=== PATIENT | male | born 1990 | race Caucasian/White ===

== ENCOUNTER 2022-11-03 21:52 | Emergency (ER) | payer BC, OTHER ==
--- OUTSIDE RECORDS SUMMARY | 2022-11-03 21:56 | XMS REPORT | Continuity of Care Document ---
:1990 Author Organization [facility] t Address [address] [place] [address] Care Team Providers Name Role Phone DANIELLE Attending Clinician Unavailable Arnaldo Travis Attending Clinician [phone] GUCCI GARCIA Attending Clinician Unavailable BA, DR BRITTON Attending Clinician Unavailable DANIELLE Admitting Clinician Unavailable DR REBA BELTRAN Admitting Clinician Unavailable Payers Payer Name Policy Type Policy Number Effective Date Expiration Date Marilee DUNN [facility] [id number] 2018 00:00:00 Problems This patient has no known problems. Allergies, Adverse Reactions, Alerts Allergy Allergy Status Severity Reaction(s) Onset Inactive Treating Comm ents Source Name Type Date Date Clinician NO KNOWN Drug Active [facility] ALLERGIE Class ity of S [facility] Social History Smoking Status Start Date Stop Date Source Current Every Day Smoker [facility] Medications Ordered Filled Start Stop Current Ordering Indication Dosage Frequency Signature Comments Components Source Medication Medication Date Date Medication? Clinician (SIG) Name Name Paxlovid Paxlovid No 3 BID Paxlovid Swe naz 300 mg (150 300 mg (150 300 mg Communi mg x 2)-100 mg x 2)-100 (150 mg x ty mg tablets mg tablets 2)-100 mg Hospita in a dose in a dose tablets in l pack (EUA) pack (EUA) a dose C linics Take 3 Take 3 pack (EUA) tablets tablets Take 3 twice a day twice a day tablets by oral by oral twice a route for 5 route for 5 day by days. days. oral route for 5 days. prednisone prednisone No prednisone [place] 20 mg 20 mg 20 mg Communi tablet Take tablet Take tablet ty 3 tablets 3 tablets Take 3 Hos meche by mouth by mouth tablets by l for the 1st for the 1st mouth for Clinics day, 2 day, 2 the 1st tablets the tablets the day, 2 2nd day and 2nd day and tablets 1 tablet 1 tablet the 2nd daily until daily until day and 1 finished finished tablet daily until finished Zithromax Zithromax No Zithromax [place] Z-Norman 250 Z-Norman 250 Z-Norman 250 Communi mg tablet mg tablet mg tablet ty TAKE 2 TAKE 2 TAKE 2 Hospita TABLETS TABLETS TABLETS l (500 MG) BY (500 MG) BY (500 MG) Clinics ORAL ROUTE ORAL ROUTE BY ORAL ONCE DAILY ONCE DAILY ROUTE ONCE FOR 1 DAY FOR 1 DAY DAILY FOR THEN 1 THEN 1 1 DAY THEN TABLET (250 TABLET (250 1 TABLET MG) BY ORAL MG) BY ORAL (250 MG) ROUTE ONCE ROUTE ONCE BY ORAL DAILY FOR 4 DAILY FOR 4 ROUTE ONCE DAYS DAYS DAILY FOR 4 DAYS Vital Signs Vital Name Observation Time Observation Value Comments Source Height 2022-04-15 00:00:00 66 [in_i] [facility] s BMI (Body Mass 2022-04-15 00:00:00 33.1 kg/m2 [facility] s Body Weight 2022-04-15 00:00:00 3280 [oz_av] [facility] s Procedures This patient has no known procedures. Plan of Care Planned Activity Planned Date Details Comments Source Diagnostic Test 2022-04-15 rapid SARS CoV 2 Ag, [facility] Pending 00:00:00 QL [place], respiratory Hospital Clinics specimen [code = rapid SARS CoV 2 Ag, QL [place], respiratory specimen] Encounters Start End Encounter Admission Attending Care Care Encounter Source Date/Time Date/Time Type Type Clinicians Facility Department ID 2021-10-17 Outpatient [facility] [id number] Common 12:30:07 [id number] [facility] 2022-04-15 2022-04-15 Outpatient DANIELLE [facility] [id number] [place] 02:54:00 02:54:00 [id number] [facility] 2022-04-15 2022-04-15 [facility] [id number] 00:00:00 00:00:00 Arnaldo [id number] Jeffrey [id number] 2022-04-15 2022-04-15 [facility] [place] 00:00:00 00:00:00 [facility] [address] [facility] [address] H[facility] Clinic s [place], [place] CLINIC, [id number] KORI , Ph. 2019-12-16 2019-12-16 Outpatient Debra GARCIA [facility] [id number] [facility] 15:30:00 15:30:00 [facility] 2019-11-18 2019-11-18 Outpatient Debra GARCIA [facility] [id number] [facility] 14:45:00 14:45:00 [facility] Results Test Description Test Time Test Comments Results Result Comments Source SARS-CoV-2 (COVID-19) Ag [Presence] in Respiratory spe cimen by 2022-04-15 13:53:00 Rapid immunoassay Test Item Value Reference Range Interpretation Comme nts SARS CoV 2 (test code = SARS CoV 2) positive [facility] [id number] 11:32:00 Test Item Value Reference Range Interpretation Comments Culture Observations NO BETA HEMOLYTIC (test code = COB1) STREPTOCOCCUS ISOLATED Direct Exam (test code NEGATIVE FOR STREP A = DE3) ANTIGEN COMPREHENSIVE METABOLIC PAZ *WW*2017-04-22 23:03:00 Test Item Value Reference Range Interpretation Comments GLUCOSE (test code = 06D) 95 mg/dL 75-100 SODIUM (test code = 01A) 138 mmol/L 136-145 POTASSIUM (test code = 01B) 3.2 mmol/L 3.6-5.1 L CHLORIDE (test code = 04A) 103 mmol/L 98-107 CO2 (test code = 02A) 23 mmol/L 22-32 ANION GAP (test code = ANG) 15.2 mmol/L BUN (test code = 05D) 13 mg/dL 7-18 CREATININE (test code = 03E) 1.1 mg/dL 0.7-1.3 BUN/CREA (test code = BCR) 12 12-20 CALCIUM (test code = 09D) 8.4 mg/dL 8.3-9.5 BILI TOTAL (test code = 11A) 0.8 mg/dL 0.2-1.0 PROTEIN (test code = 07D) 7.2 g/dL 6.4-8.2 ALBUMIN (test code = 08D) 3.9 g/dL 3.5-4.8 GLOBULIN (test code = GLB) 3.3 g/dL 1.5-3.8 ALB/GLOB (test code = AGRR) 1.2 1.0-2.6 ALK PHOS (test code = 35A) 67 IU/L 42-121 AST (test code = 30A) 21 IU/L <=42 ALT (test code = 31A) 24 IU/L <=78 CBC (INCLUDES AUTOMATED DIFFERENTIAL)*[id number] 22:47:00 Test Item Value Reference Range Interpretation Comments WBC (test code = WBC) 7.4 10\S\3/uL 4.5-11.0 RBC (test code = RBC) 4.54 10\S\6/uL 4.30-5.70 HGB (test code = HBG) 13.0 g/dL 14.0-18.0 L HCT (test code = HCT) 36.6 % 35.0-46.0 MCV (test code = MCV) 80.6 fL 80.0-94.0 MCH (test code = MCH) 28.6 pg 27.0-31.0 MCHC (test code = MCHC) 35.5 g/dL 32.0-36.0 RDW (test code = RDW) 11.8 % 11.5-14.5 PLT (test code = PLT) 180 10\S\3/uL 130-400 MPV (test code = MPV) 12.6 fL 9.4-12.4 H NEUTROP # (test code = NE#) 4.6 10\S\3/uL 2.0-8.0 LYMPH # (test code = LY#) 1.8 10\S\3/uL 1.2-4.0 MONOCYTE # (test code = MO#) 0.9 10\S\3/uL 0.0-1.1 EOSINOPH # (test code = EO#) 0.1 10\S\3/uL 0.0-0.7 BASOPHIL # (test code = BA#) 0.1 10\S\3/uL 0.0-0.3 IG # (test code = IG#) 0.02 10\S\3/uL 0.00-0.06 NRBC # (test code = NRBC#) 0.00 10\S\3/uL 0.00-0.01 NEUTROPH % (test code = NE%) 61.7 % 35.0-73.0 LYMPH % (test code = LY%) 24.4 % 20.0-55.0 MONO % (test code = MO%) 11.8 % 2.5-10.0 H EOSINOPH % (test code = EO%) 1.1 % 0.0-5.0 BASOPHIL % (test code = BA%) 0.7 % 0.0-2.0 IG % (test code = IG%) 0.3 % 0.0-0.8 NRBC% (test code = NRBC%) 0.0 % 0.0-0.2 MANDIFF (test code = WMDIFF) NO NO RBC MORPH (test code = NORMAL WRBCMOR) DIRECT INFLUENZA A AND B [id number] 21:38:00 Test Item Value Reference Range Interpretation Comments Direct Exam (test PRESUMPTIVE NEGATIVE FOR code = DE3) THE PRESENCE OF INFLUENZA ANTIGEN
[2022-11-03] MEDS ORDERED: NA CHLORIDE 0.9% 1,000 ML ONE (22:24)
[2022-11-03] MEDS ORDERED: MORPHINE 4 MG/ML SYR ONE (22:24)
[2022-11-03] MEDS ORDERED: KETOROLAC 30 MG/ML INJ ONE (22:24)
[2022-11-03 23:00] LABS: Absolute Lymphocytes (CBC) 1.9 K/uL (0.7-4.9); Hematocrit 38.9 % (39.6-49.0); MCV 83.6 fL (80-100); MPV 11.5 fL (7.6-11.3); RBC Red Blood Cell Count 4.65 M/uL (4.33-5.43)
[2022-11-03 23:10] LABS: Potassium 3.9 mmol/L (3.5-5.1)
[2022-11-03 23:37] LABS: Urine Bacteria None Seen /HPF (<20); Urine RBC <5 /HPF (None Seen)
[2022-11-03 23:39] LABS: Urine Blood Negative (Negative); Urine Glucose Negative (Negative); Urine Protein 1+ (Negative); Urine pH 7.5 (5.0-7.0)
--- NOTE | 2022-11-04 00:20 | ER ---
Nurse's Notes [facility] Name: Krunal Reyna Age: 32 yrs Sex: Male : 1990 Arrival Date: 11/03/2022 Time: 21:56 Bed 19 Private MD: Diagnosis: Right flank pain;Ureterolithiasis;Acute Kidney Injury Presentation: 11/03 22:09 Chief complaint: Patient states: C/o intermittent right flank pain since Friday 06/01. ll3 Coronavirus screen: Vaccine status: Patient reports receiving the 2nd dose of the covid vaccine. At this time, the client does not indicate any symptoms associated with coronavirus-19. Ebola Screen: No symptoms or risks identified at this time. Initial Sepsis Screen: Does the patient meet any 2 criteria? No. Patient's initial sepsis screen is negative. Does the patient have a suspected source of infection? No. Patient's initial sepsis screen is negative. Risk Assessment: Do you want to hurt yourself or someone else? Patient reports no desire to harm self or others. Onset of symptoms was November 01, 2022. 22:09 Method Of Arrival: Ambulatory ll3 22:09 Acuity: LE 3 ll3 22:09 Care prior to arrival: Medication(s) given: Motrin, at 9 PM. ll3 Triage Assessment: 22:11 General: Appears uncomfortable, Behavior is calm, cooperative. Pain: Complains of pain ll3 in anterior aspect of right lateral abdomen Pain radiates to right femoral area and right inguinal area Pain currently is 9 out of 10 on a pain scale. Pain began Friday. GI: Abdomen is round non-distended, Reports nausea, Right flank pain. Derm: Skin is pink, warm \T\ dry. Historical: - Allergies: 22:11 No Known Allergies; ll3 - Home Meds: 22:11 Flomax 0.4 mg Oral cap [Active]; ll3 - PMHx: 22:11 Hypercholesterolemia; ll3 - PSHx: 22:11 None; ll3 - Immunization history:: Client reports receiving the 2nd dose of the Covid vaccine. - Social history:: Smoking status: Patient denies any tobacco usage or history of. Screenin:20 Abuse screen: Denies threats or abuse. Denies injuries from another. Nutritional ha1 screening: No deficits noted. Tuberculosis screening: No symptoms or risk factors identified. 11/04 00:35 [facility] ED Fall Risk Assessment (Adult) History of falling in the last 3 months, ll3 including since admission No falls in past 3 months (0 pts) Confusion or Disorientation No (0 pts) Intoxicated or Sedated No (0 pts) Impaired Gait No (0 pts) Mobility Assist Device Used No (0 pt) Altered Elimination No (0 pt) Score/Fall Risk Level 0 - 2 = Low Risk Oriented to surroundings, Maintained a safe environment, Educated pt \T\ family on fall prevention, incl call for assistance when getting out of bed. Assessment: 11/03 22:00 General: Appears uncomfortable, Behavior is calm, cooperative. Pain: Complains of pain ha1 in right lower back Pain radiates to right lower quadrant Pain currently is 9 out of 10 on a pain scale. Quality of pain is described as throbbing, Pain began suddenly. Neuro: Level of Consciousness is awake, alert, obeys commands, Oriented to person, place, time, situation. Cardiovascular: Heart tones S1 S2 present Capillary refill < 3 seconds Patient's skin is warm and dry. Respiratory: Airway is patent Respiratory effort is even, unlabored, Respiratory pattern is regular, symmetrical. GI: Abdomen is flat, non-distended, Bowel sounds present X 4 quads. Abd is soft and non tender X 4 quads. : No signs and/or symptoms were reported regarding the genitourinary system. EENT: No deficits noted. No signs and/or symptoms were reported regarding the EENT system. Derm: Skin is pink, warm \T\ dry. Musculoskeletal: Circulation, motion, and sensation intact. Range of motion: intact in all extremities, Reports pain in right lower back and pelvis area Pain is 9 out of 10 on a pain scale. 23:00 Reassessment: Patient and/or family updated on plan of care and expected duration. Pain ha1 level reassessed. Patient is alert, oriented x 3, equal unlabored respirations, skin warm/dry/pink. pain 3/10 Patient denies pain at this time. Patient states feeling better. Patient states symptoms have improved. 11/04 00:00 Reassessment: Patient and/or family updated on plan of care and expected duration. Pain ha1 level reassessed. Patient is alert, oriented x 3, equal unlabored respirations, skin warm/dry/pink. Patient states feeling better. Patient states symptoms have improved. Vital Signs: 11/03 22:00 BP 131 / 91; Pulse 66; Resp 18 S; Pulse Ox 99% on R/A; ha1 22:09 BP 131 / 91; Pulse 66; Resp 18; Temp 98.5(O); Pulse Ox 99% on R/A; Weight 92.99 kg (R); ll3 Height 5 ft. 6 in. (167.64 cm) (R); Pain 9/10; 23:00 BP 133 / 73; Pulse 66; Resp 15 S; Pulse Ox 99% on R/A; ha1 11/04 00:00 BP 133 / 82; Pulse 66; Resp 16 S; Pulse Ox 99% on R/A; ha1 11/03 22:09 Body Mass Index 33.09 (92.99 kg, 167.64 cm) ll3 ED Course: 11/03 21:56 Patient arrived in ED. ja2 22:00 Patient has correct armband on for positive identification. Placed in gown. Bed in low ha1 position. Call light in reach. Side rails up X 1. 22:01 Aldo Aguayo DO is Attending Physician. ms3 22:09 Emily Nelson, [place] is Primary Nurse. ha1 22:11 Triage completed. ll3 22:11 Arm band placed on Patient placed in an exam room, on a stretcher, on pulse oximetry. ll3 22:16 BMP Sent. ha1 22:30 Inserted saline lock: 20 gauge in right antecubital area, using aseptic technique. 1 Blood collected. 22:42 CBC with Diff Sent. 1 11/04 00:18 Ramy Pope MD is Referral Physician. ms3 00:35 No provider procedures requiring assistance completed. IV discontinued, intact, ll3 bleeding controlled, No redness/swelling at site. Pressure dressing applied. Administered Medications: 11/03 22:30 Drug: NS 0.9% 1000 ml Route: IV; Rate: 1000 ml; Site: right antecubital; 1 11/04 00:22 Follow up: Response: No adverse reaction; IV Status: Completed infusion; IV Intake: ha1 1000ml 02 22:32 Drug: Ketorolac 10 mg 10 mg Route: IVP; Site: right antecubital; ha1 23:00 Follow up: Response: No adverse reaction ha1 22:35 Drug: morphine 4 mg Route: IVP; Infused Over: 4 mins; Site: right antecubital; ha1 23:00 Follow up: Response: No adverse reaction; Pain is decreased; RASS: Alert and Calm (0) ha1 Medication: 11/04 00:35 VIS not applicable for this client. 3 Intake: 00:22 IV: 1000ml; Total: 1000ml. ha1 Outcome: 00:20 Discharge ordered by MD. ms3 00:35 Discharged to home ambulatory, with significant other. 3 00:35 Condition: stable 00:35 Discharge instructions given to patient, significant other, Instructed on discharge instructions, follow up and referral plans. Demonstrated understanding of instructions, follow-up care. 00:35 Patient left the ED. 3 Signatures: Aldo Aguayo DO DO ms3 Paige Lawrence Lynsea, RN RN 3 Emily Nelson RN RN 1 Corrections: (The following items were deleted from the chart) 11/03 23:06 23:04 Reassessment: Patient and/or family updated on plan of care and expected ha1 duration. Pain level reassessed. Patient is alert, oriented x 3, equal unlabored respirations, skin warm/dry/pink. pain 3/10 Patient denies pain at this time. Patient states feeling better. Patient states symptoms have improved. ha1
--- NOTE | 2022-11-04 00:20 | EDPHYS ---
Physician Documentation [facility] Name: Krunal Reyna Age: 32 yrs Sex: Male : 1990 Arrival Date: 11/03/2022 Time: 21:56 Bed 19 Private MD: ED Physician Aldo Aguayo HPI: 11/03 22:21 This 32 yrs old Male presents to ER via Ambulatory with complaints of Possible Kidney ms3 Stone, Abdominal Pain, Back Pain, Nausea. 22:21 32-year-old male with past medical history of hyperlipidemia and kidney stones presents ms3 for right flank pain that returned this evening. Patient states he was diagnosed with a 3 mm kidney stone at the distal UVJ on Friday at [place]. Patient states his pain is an 8/10 located in the right flank. Patient states the pain radiates to his right groin.. Historical: - Allergies: 22:11 No Known Allergies; ll3 - Home Meds: 22:11 Flomax 0.4 mg Oral cap [Active]; ll3 - PMHx: 22:11 Hypercholesterolemia; ll3 - PSHx: 22:11 None; ll3 - Immunization history:: Client reports receiving the 2nd dose of the Covid vaccine. - Social history:: Smoking status: Patient denies any tobacco usage or history of. ROS: 22:21 Constitutional: Negative for fever, and chills. Neck: Negative for injury, pain, and ms3 swelling, Cardiovascular: Negative for chest pain, and palpitations. Respiratory: Negative for shortness of breath, cough, wheezing, and pleuritic chest pain, Abdomen/GI: Negative for abdominal pain, nausea, vomiting, diarrhea, and constipation. 22:21 Back: Positive for flank pain, on the right. 22:21 All other systems are negative. Exam: 22:21 Constitutional: This is a well developed, well nourished patient who is awake, alert, ms3 and in no acute distress. Head/Face: Normocephalic, atraumatic. Neck: Trachea midline, no cervical lymphadenopathy. Supple, full range of motion without nuchal rigidity, or vertebral point tenderness. No Meningismus. Chest/axilla: Normal chest wall appearance and motion. Nontender with no deformity. Cardiovascular: Regular rate and rhythm with a normal S1 and S2. No gallops, murmurs, or rubs. Normal PMI, no JVD. No pulse deficits. Respiratory: Lungs have equal breath sounds bilaterally, clear to auscultation and percussion. No rales, rhonchi or wheezes noted. No increased work of breathing, no retractions or nasal flaring. Abdomen/GI: Soft, non-tender, with normal bowel sounds. No distension or tympany. No guarding or rebound. No evidence of tenderness throughout. 22:21 Back: pain, that is moderate, CVA tenderness, that is moderate, is noted on the right. Vital Signs: 22:00 BP 131 / 91; Pulse 66; Resp 18 S; Pulse Ox 99% on R/A; ha1 22:09 BP 131 / 91; Pulse 66; Resp 18; Temp 98.5(O); Pulse Ox 99% on R/A; Weight 92.99 kg (R); ll3 Height 5 ft. 6 in. (167.64 cm) (R); Pain 9/10; 23:00 BP 133 / 73; Pulse 66; Resp 15 S; Pulse Ox 99% on R/A; ha1 11/04 00:00 BP 133 / 82; Pulse 66; Resp 16 S; Pulse Ox 99% on R/A; ha1 11/03 22:09 Body Mass Index 33.09 (92.99 kg, 167.64 cm) ll3 MDM: 11/03 22:10 Patient medically screened. ms3 22:21 Differential diagnosis: Hydronephrosis Pyelonephritis Ureterolithiasis. ms3 22:28 External Records Reviewed: Outside ED record: CT scan of abdomen pelvis without IV ms3 contrast performed on November 01, 2022 showed a small 3 mm calculus in the distal right ureter just proximal to the UVJ with minimal right hydronephrosis. CMP showed sodium 141, potassium 4.6, bicarb 30, chloride 103, glucose 114, calcium 9.4, BUN 17, creatinine 1.2, ALP 79, ALT 39, AST 37, T. bili 0.7. Urinalysis revealed glucose negative, bili negative, ketone trace, specific gravity 1.020, blood negative, pH 6.5, protein 30, nitrite negative, leukocyte esterase negative. CBC revealed white blood count 9.9, hemoglobin 14.7, hematocrit 40.4, platelet 230.. 11/04 00:24 Data reviewed: vital signs, nurses notes, lab test result(s), and as a result, I will ms3 discharge patient. I considered the following discharge prescriptions or medication management in the emergency department Medications were administered in the Emergency Department. See MAR. Test considered but Not performed: CT: Patient with CT abdomen pelvis without contrast performed on Friday showing 3 mm distal UVJ stone on right side.. Counseling: I had a detailed discussion with the patient and/or guardian regarding: the historical points, exam findings, and any diagnostic results supporting the discharge/admit diagnosis, lab results, the need for outpatient follow up, to return to the emergency department if symptoms worsen or persist or if there are any questions or concerns that arise at home. ED course: Discussed with patient and his elevated creatinine. Discussed discontinuation of ciprofloxacin as urine is negative. Patient to follow-up with Dr. Pope in 2 to 3 days. Patient understands and agrees with plan. All questions were answered. Return precautions discussed include fevers, chills, worsening symptoms, or any other concerns. On reevaluation patient's pain is improved, patient is alert and oriented x4, in no apparent distress, nontoxic-appearing, speaking full sentences.. 11/03 22:14 Order name: CBC with Diff ms3 11/03 22:14 Order name: BMP ms3 11/03 23:10 Order name: Basic Metabolic Panel; Complete Time: 23:30 EDMS 11/03 23:10 Order name: CBC with Automated Diff; Complete Time: 23:30 EDMS 11/03 23:38 Order name: Urine Microscopic Only; Complete Time: 00:11 EDMS 11/03 22:14 Order name: IV Saline Lock; Complete Time: 22:42 ms3 11/03 22:14 Order name: Labs collected and sent; Complete Time: 22:43 ms3 11/03 22:14 Order name: Urine Dipstick-Ancillary (obtain specimen); Complete Time: 23:45 ms3 11/03 23:39 Order name: Urine Dipstick-Ancillary; Complete Time: 00:11 EDMS Administered Medications: 11/03 22:30 Drug: NS 0.9% 1000 ml Route: IV; Rate: 1000 ml; Site: right antecubital; ha1 11/04 00:22 Follow up: Response: No adverse reaction; IV Status: Completed infusion; IV Intake: ha1 1000ml 11/03 22:32 Drug: Ketorolac 10 mg 10 mg Route: IVP; Site: right antecubital; ha1 23:00 Follow up: Response: No adverse reaction ha1 22:35 Drug: morphine 4 mg Route: IVP; Infused Over: 4 mins; Site: right antecubital; ha1 23:00 Follow up: Response: No adverse reaction; Pain is decreased; RASS: Alert and Calm (0) ha1 Disposition Summary: 11/04/22 00:20 Discharge Ordered Location: Home ms3 Condition: Stable ms3 Diagnosis - Right flank pain ms3 - Ureterolithiasis ms3 - Acute Kidney Injury ms3 Followup: ms3 - With: Ramy Pope MD - When: 2 - 3 days - Reason: Recheck today's complaints Discharge Instructions: - Discharge Summary Sheet ms3 - Kidney Stones, [id number] ms3 Forms: - Medication Reconciliation Form ms3 - Thank You Letter ms3 - Antibiotic Education ms3 - Prescription Opioid Use ms3 Signatures: Dispatcher [employer] EDMS Aldo Aguayo DO DO ms3 Prosper Crespo, [place] RN 3 Emily Nelson, [place] RN 1 Corrections: (The following items were deleted from the chart) 22:42 22:15 Urine Microscopic+U.LAB.BRZ ordered. EDMS EDMS
[2022-11-04 01:32] VITALS: BP 133/82; TEMP 98.5; O2SAT 99
== END 2022-11-04 00:35 | disposition home or self-care (01) ==
LOC: ER 21:52
DX: N20.1 Calculus of ureter (principal); N17.9 Acute kidney failure, unspecified; Z87.442 Personal history of urinary calculi; E78.00 Pure hypercholesterolemia, unspecified
CPT/HCPCS: 85025; 80048; 36415; J7030; 81003; 81015

== ENCOUNTER 2022-11-08 13:58 | Emergency (ER) | payer OTHER ==
--- OUTSIDE RECORDS SUMMARY | 2022-11-08 14:02 | XMS REPORT | Continuity of Care Document ---
:1990 Author Organization [facility] t Address [address] [place] [place] [address] Care Team Providers Name Role Phone DANIELLE Attending Clinician Unavailable Arnaldo Travis Attending Clinician [phone] GUCCI GARCIA Attending Clinician Unavailable DEVIN, DR BRITTON Attending Clinician Unavailable DANIELLE Admitting Clinician Unavailable DR REBA BELTRAN Admitting Clinician Unavailable Payers Payer Name Policy Type Policy Number Effective Date Expiration Date Marilee D[place] [facility] [id number] 2018-10-19 00:00:00 Problems This patient has no known problems. Allergies, Adverse Reactions, Alerts Allergy Allergy Status Severity Reaction(s) Onset Inactive Treating Comm ents Source Name Type Date Date Clinician NO KNOWN Drug Active [facility] ALLERGIE Class ity of [facility] Social History Smoking Status Start Date Stop Date Source Current Every Day Smoker [facility] Medications Ordered Filled Start Stop Current [...] for 5 days. prednisone prednisone No prednisone [place] 20 mg 20 mg 20 mg Communi [...] daily until finished Zithromax Zithromax No Zithromax [place] Z-Norman 250 Z-Norman 250 Z-Norman 250 Communi [...] Comments Source Height 2022-04-15 00:00:00 66 [in_i] [facility] BMI (Body Mass 2022-04-15 00:00:00 33.1 kg/m2 [facility]) [facility] Body Weight 2022-04-15 00:00:00 3280 [oz_av] [facility] Procedures This patient has no known procedures. Plan of Care Planned Activity Planned Date Details Comments Source Diagnostic Test 2022-04-15 rapid SARS CoV [address] Ag, [facility] Pending 00:00:00 QL [place], respiratory Hospital Clinics specimen [code = rapid SARS CoV 2 Ag, QL IA, respiratory specimen] Encounters Start End Encounter Admission Attending Care Care Encounter Source Date/Time Date/Time Type Type Clinicians Facility Department ID 2021-10-17 Outpatient [facility] [id number] Common 12:30:07 [id number] [facility] 2022-04-15 2022-04-15 Outpatient DANIELLE [facility] [address] [place] 02:54:00 02:54:00 [id number] [facility] 2022-04-15 2022-04-15 [facility] [id number] 00:00:00 00:00:00 Arnaldo [id number] Jeffrey [id number] 2022-04-15 2022-04-15 [facility] [place] 00:00:00 00:00:00 [facility] [address] [facility] [address], HOSPITAL Clinic s [place], [place] CLINIC, [id number] KORI , Ph. 2019-12-16 2019-12-16 [facility] [id number] [facility] 15:30:00 15:30:00 [facility] 2019-11-18 2019-11-18 [facility] [id number] [facility] 14:45:00 14:45:00 [facility] Results Test Description Test Time Test Comments Results Result Comments Source SARS-CoV-2 (COVID-19) Ag [Presence] in Respiratory spe cimen by 2022-04-15 13:53:00 Rapid immunoassay Test Item Value Reference Range Interpretation Comme nts SARS CoV 2 (test code = SARS CoV 2) positive [facility] [id number] 11:32:00 Test Item Value Reference Range Interpretation [...] 31A) 24 IU/L <=78 CBC (INCLUDES AUTOMATED DIFFERENTIAL)*[id number] 22:47:00 Test Item Value Reference Range Interpretation [...] NORMAL WRBCMOR) DIRECT INFLUENZA A AND B [id number] 21:38:00 Test Item Value Reference Range Interpretation Comments Direct Exam (test PRESUMPTIVE NEGATIVE FOR code = DE3) THE PRESENCE OF INFLUENZA ANTIGEN
[2022-11-08] MEDS ORDERED: MAGNESIUM SULFATE 1 gm IVPB 1 GM/100 ML BAG IV ONE (14:24)
[2022-11-08] MEDS ORDERED: ONDANSETRON 4 MG/2 ML VIAL ONE (14:24)
[2022-11-08] MEDS ORDERED: KETOROLAC 30 MG/ML INJ ONE (14:24)
[2022-11-08] MEDS ORDERED: NA CHLORIDE 0.9% 1,000 ML ONE (14:25)
[2022-11-08 14:42] LABS: Absolute Lymphocytes (CBC) 2.5 K/uL (0.7-4.9); Hematocrit 41.9 % (39.6-49.0); Lymphocytes % 22.6 % (15.3-44.8); MCV 83.8 fL (80-100); MPV 11.2 fL (7.6-11.3)
--- NOTE | 2022-11-08 14:50 | RAD REPORT ---
EXAM DESCRIPTION: CT - Stone Protocol - 11/08/2022 2:37 pm CLINICAL HISTORY: Flank pain. Kidney stone. COMPARISON: None. TECHNIQUE: CT imaging of the abdomen and pelvis was performed without IV contrast. Multiplanar refor mats were generated and reviewed. All CT scans are performed using dose optimization technique as appropriate and may include automated exposure control or mA/KV adjustment according to patient size. FINDINGS: No suspicious findings in the lung bases. The liver, spleen and pancreas show no suspicious findings. Gallbladder and biliary tree are also wit hout suspicious finding. Moderate right hydronephrosis and mild right hydroureter. A 3 millimeter obstructing calculus is seen at the vesicourethral junction. No hydroureteronephrosis or radiopaque calculi on the left. No sign ificant adrenal finding. Renal contour is otherwise within normal, within limitations of noncontrast CT. No dilated bowel loops or bowel wall thickening. No free air, free fluid or inflammatory stranding. N o hernia, mass or bulky lymphadenopathy. Urinary bladder is suboptimally distended, limiting evaluati on. No suspicious bony findings. IMPRESSION: Moderate right hydronephrosis and mild right hydroureter secondary to a 3 millimeter obs tructing right vesicourethral junction calculus. No other acute abnormalities of the abdomen and pelvis. The findings were communicated to Xavier Hutchins MD on 11/08/2022 at 14:45 hours.
[2022-11-08 14:53] LABS: Potassium 4.1 mmol/L (3.5-5.1)
[2022-11-08 16:30] LABS: Urine Blood Trace-intact (Negative); Urine Glucose Negative (Negative); Urine Protein Trace (Negative); Urine Specific Gravity 1.025 (1.005-1.030)
[2022-11-08] MEDS ORDERED: MORPHINE 4 MG/ML SYR ONE (16:31)
[2022-11-08 16:35] LABS: Urine Bacteria None Seen /HPF (<20); Urine Mucus Slight /HPF (None Seen); Urine RBC <5 /HPF (None Seen)
--- NOTE | 2022-11-08 16:56 | ER ---
Nurse's Notes [facility] Name: Krunal Reyna Age: 32 yrs Sex: Male : 1990 Arrival Date: 11/08/2022 Time: 14:01 Bed 2 Private MD: Diagnosis: Calculus of ureter;Unspecified hydronephrosis Presentation: 11/08 14:16 Chief complaint: Patient states: R back pain that radiates to RLQ and R groin, states ph that he was seen last Friday at [place] and dx w/ 3mm kidney stone, was then seen here on Friday for same complaint but no CT was done, has been taking Tylenol, Motrin, Zofran and Flomax, reports that pain had improved on Fri but returned today. Also reports N/V, denies fever, chills, or difficulty urinating. Coronavirus screen: Vaccine status: Patient reports receiving the 2nd dose of the covid vaccine. Ebola Screen: No symptoms or risks identified at this time. Initial Sepsis Screen: Does the patient meet any 2 criteria? No. Patient's initial sepsis screen is negative. Does the patient have a suspected source of infection? No. Patient's initial sepsis screen is negative. Risk Assessment: Do you want to hurt yourself or someone else? Patient reports no desire to harm self or others. Onset of symptoms was November 08, 2022. 14:16 Method Of Arrival: Ambulatory ph 14:16 Acuity: LE 3 ph Triage Assessment: 14:20 General: Appears in no apparent distress. uncomfortable, Behavior is calm, cooperative, ph appropriate for age. Pain: Complains of pain in right mid back and right low back Pain radiates to right lower quadrant. Neuro: Henry Agitation-Sedation Scale (RASS): 0 - Alert and Calm Level of Consciousness is awake, alert, obeys commands, Oriented to person, place, time, situation. : Reports pain in right lower quadrant(s) in lower back. Historical: - Allergies: 14:19 No Known Allergies; ph - PMHx: 14:19 Hypercholesterolemia; ph - Immunization history:: Adult Immunizations unknown. - Social history:: Smoking status: Patient denies any tobacco usage or history of. Screenin:52 [facility] ED Fall Risk Assessment (Adult) History of falling in the last 3 months, ko1 including since admission No falls in past 3 months (0 pts) Confusion or Disorientation No (0 pts) Intoxicated or Sedated No (0 pts) Impaired Gait No (0 pts) Mobility Assist Device Used No (0 pt) Altered Elimination No (0 pt) Score/Fall Risk Level 0 - 2 = Low Risk Oriented to surroundings, Maintained a safe environment, Educated pt \T\ family on fall prevention, incl call for assistance when getting out of bed, Assessed \T\ reinforced patient's understanding of fall precautions, Provided non-skid footwear, Hourly rounding (assess needs \T\ fall precautionary measures) done, Used ambulatory aids as needed (educated on \T\ assisted with), Used gait belt as appropriate. Abuse screen: Denies threats or abuse. Denies injuries from another. Nutritional screening: No deficits noted. Tuberculosis screening: No symptoms or risk factors identified. Assessment: 14:30 General: Appears distressed, uncomfortable, Behavior is cooperative, appropriate for ko1 age. Pain: Complains of pain in abdomen and right lower quadrant and back and right low back and right mid back. Neuro: No deficits noted. Cardiovascular: No deficits noted. Respiratory: No deficits noted. GI: No deficits noted. : No deficits noted. EENT: No deficits noted. Derm: No deficits noted. Musculoskeletal: No deficits noted. 15:37 Reassessment: Patient appears in no apparent distress at this time. Patient and/or hb family updated on plan of care and expected duration. Pain level reassessed. Patient is alert, oriented x 3, equal unlabored respirations, skin warm/dry/pink. Vital Signs: 14:16 BP 145 / 90; Pulse 51; Resp 18; Temp 98.1(O); Pulse Ox 100% on R/A; Weight 90.72 kg; ph Height 5 ft. 6 in. (167.64 cm); Pain 8/10; 14:30 BP 139 / 96; Pulse 57; Resp 20; Pulse Ox 99% ; ko1 15:37 BP 120 / 79; Pulse 56; Resp 15; Pulse Ox 100% ; hb 16:42 BP 135 / 85; Pulse 52; Resp 18; Pulse Ox 99% ; ko1 14:16 Body Mass Index 32.28 (90.72 kg, 167.64 cm) ED Course: 14:01 Patient arrived in ED. as 14:04 [facility]raf [facility]C [facility] kb 14:04 Xavier Hutchins MD is Attending Physician. kb 14:10 Irene Farmer, [place] is Primary Nurse. ko1 14:19 Triage completed. ph 14:20 Arm band placed on Patient placed in an exam room, on a stretcher, on pulse oximetry. ph 14:30 Patient has correct armband on for positive identification. Placed in gown. Bed in low ko1 position. Call light in reach. Side rails up X 1. monitoring and evaluation advisor on. Pulse ox on. NIBP on. 14:30 No provider procedures requiring assistance completed. Inserted saline lock: 20 gauge ko1 in right antecubital area, using aseptic technique. Blood collected. 14:31 BMP Sent. ko1 14:39 CT Stone Protocol In Process Unspecified. EDMS 16:24 Urine Microscopic Only Sent. ko1 16:56 IV discontinued, intact, bleeding controlled, No redness/swelling at site. Pressure ko1 dressing applied. Administered Medications: 14:30 Drug: NS 0.9% 1000 ml Route: IV; Rate: 1 bolus; Site: right antecubital; ko1 16:25 Follow up: Response: No adverse reaction; No change in condition; IV Status: Completed ko1 infusion; IV Intake: 1000ml 14:31 Drug: Zofran (Ondansetron) 4 mg Route: IVP; Site: right antecubital; ko1 16:25 Follow up: Response: No adverse reaction; Nausea is decreased ko1 14:33 Drug: TORadol - (ketorolac) 15 mg Route: IVP; Site: right antecubital; ko1 16:25 Follow up: Response: No adverse reaction; Pain is decreased ko1 14:33 Drug: Magnesium Sulfate 1 grams Route: IVPB; Infused Over: 1 hrs; Site: right ko1 antecubital; 16:26 Follow up: Response: No adverse reaction; No change in condition; IV Status: Completed ko1 infusion; IV Intake: 100ml 16:28 Drug: morphine 4 mg Route: IVP; Infused Over: 4 mins; Site: right antecubital; ko1 16:56 Follow up: Response: No adverse reaction; Pain is decreased ko1 Medication: 14:21 VIS not applicable for this client. ph Intake: 16:25 IV: 1000ml; Total: 1000ml. ko1 16:26 IV: 100ml; Total: 1100ml. ko1 Outcome: 16:55 Discharge ordered by MD. snow 16:56 Discharged to home ambulatory. ko1 16:56 Condition: stable 16:56 Discharge instructions given to patient, family, Instructed on discharge instructions, follow up and referral plans. Demonstrated understanding of instructions, follow-up care. 17:02 Patient left the ED. ko1 Signatures: Dispatcher [employer] EDPA Sidra Ashraf, [employer]-C [employer]-Amber Oliver Patricia, RN RN Cadence Vazquez, [place] RN Irene Farmer RN RN ko1
--- NOTE | 2022-11-08 16:56 | EDPHYS ---
Physician Documentation [facility] Name: Krunal Reyna Age: 32 yrs Sex: Male : 1990 Arrival Date: 11/08/2022 Time: 14:01 Bed 2 Private MD: ED Physician Xavier Hutchins HPI: 11/08 18:50 This 32 yrs old Male presents to ER via Ambulatory with complaints of kidney stone. kb 18:51 The patient complains of pain in the right flank. The pain radiates to the groin and kb right inguinal area. Onset: The symptoms/episode began/occurred 1 week(s) ago. Modifying factors: The symptoms are alleviated by nothing. the symptoms are aggravated by nothing. Associated signs and symptoms: Pertinent positives: nausea, vomiting, Pertinent negatives: diarrhea, dizziness, dysuria, fever, urinary frequency, headache, hematuria, pain radiating to the lower extremities. Severity of pain: At its worst the pain was moderate in the emergency department the pain is unchanged. The patient has not experienced similar symptoms in the past. The patient has been recently seen by a physician:. Historical: - Allergies: 14:19 No Known Allergies; ph - PMHx: 14:19 Hypercholesterolemia; ph - Immunization history:: Adult Immunizations unknown. - Social history:: Smoking status: Patient denies any tobacco usage or history of. ROS: 18:50 Constitutional: Negative for fever, chills, and weight loss. kb 18:50 Back: Positive for flank pain, on the right. 18:50 All other systems are negative. 18:50 Abdomen/GI: Positive for nausea and vomiting, Negative for abdominal pain. kb Exam: 18:50 Constitutional: This is a well developed, well nourished patient who is awake, alert, kb and in no acute distress. Head/Face: Normocephalic, atraumatic. ENT: Moist Mucous membranes Cardiovascular: Regular rate and rhythm with a normal S1 and S2. No gallops, murmurs, or rubs. No pulse deficits. Respiratory: Respirations even and unlabored. No increased work of breathing. Talking in full sentences Abdomen/GI: Soft, non-tender. No distention Skin: Warm, dry with normal turgor. Normal color. MS/ Extremity: Pulses equal, no cyanosis. Neurovascular intact. Full, normal range of motion. Neuro: Awake and alert, GCS 15, oriented to person, place, time, and situation. Moves all extremities. Normal gait. Vital Signs: 14:16 BP 145 / 90; Pulse 51; Resp 18; Temp 98.1(O); Pulse Ox 100% on R/A; Weight 90.72 kg; ph Height 5 ft. 6 in. (167.64 cm); Pain 8/10; 14:30 BP 139 / 96; Pulse 57; Resp 20; Pulse Ox 99% ; ko1 15:37 BP 120 / 79; Pulse 56; Resp 15; Pulse Ox 100% ; hb 16:42 BP 135 / 85; Pulse 52; Resp 18; Pulse Ox 99% ; ko1 14:16 Body Mass Index 32.28 (90.72 kg, 167.64 cm) ph MDM: 14:07 Patient medically screened. kb 18:50 Data reviewed: vital signs, nurses notes. kb 19:01 Differential diagnosis: nephrolithiasis, pyelonephritis, UTI. Consideration of kb Admission/Observation Escalation of care including admission/observation considered. Admission considered due to pain and ongoing symptoms but pain was controlled prior to discharge.. External Records Reviewed: Outside ED record: Received faxed records from [facility] from visit on November 01. Reviewed and compared to today's results.. Counseling: I had a detailed discussion with the patient and/or guardian regarding: the historical points, exam findings, and any diagnostic results supporting the discharge/admit diagnosis, lab results, radiology results, the need for outpatient follow up, a urologist, to return to the emergency department if symptoms worsen or persist or if there are any questions or concerns that arise at home. Response to treatment: the patient's symptoms have markedly improved after treatment. ED course: Patient is a 32-year-old male who presents for right flank pain that radiates to right groin that started last Friday. States it got better throughout the week and returned today. Patient reports nausea and vomiting. Patient was seen at [facility] at onset of symptoms diagnosed with a 3 mm stone at the right ureter just proximal to the UVJ. Today stone has moved and is at the UVJ with moderate hydronephrosis. Pain controlled, no infection in the urine. Will discharge home for patient to follow-up with urology.. 11/08 14:15 Order name: CBC with Diff; Complete Time: 14:48 kb 11/08 14:15 Order name: Urine Microscopic Only; Complete Time: 16:42 kb 11/08 14:15 Order name: CT Stone Protocol; Complete Time: 14:53 kb 11/08 14:15 Order name: BMP; Complete Time: 14:54 kb 11/08 16:31 Order name: Urine Dipstick-Ancillary; Complete Time: 16:31 EDMS 11/08 14:15 Order name: IV Saline Lock; Complete Time: 14:31 kb 11/08 14:15 Order name: Labs collected and sent; Complete Time: 14:31 kb 11/08 14:15 Order name: Urine Dipstick-Ancillary (obtain specimen); Complete Time: 16:24 kb Administered Medications: 14:30 Drug: NS 0.9% 1000 ml Route: IV; Rate: 1 bolus; Site: right antecubital; ko1 16:25 Follow up: Response: No adverse reaction; No change in condition; IV Status: Completed ko1 infusion; IV Intake: 1000ml 14:31 Drug: Zofran (Ondansetron) 4 mg Route: IVP; Site: right antecubital; ko1 16:25 Follow up: Response: No adverse reaction; Nausea is decreased ko1 14:33 Drug: TORadol - (ketorolac) 15 mg Route: IVP; Site: right antecubital; ko1 16:25 Follow up: Response: No adverse reaction; Pain is decreased ko1 14:33 Drug: Magnesium Sulfate 1 grams Route: IVPB; Infused Over: 1 hrs; Site: right ko1 antecubital; 16:26 Follow up: Response: No adverse reaction; No change in condition; IV Status: Completed ko1 infusion; IV Intake: 100ml 16:28 Drug: morphine 4 mg Route: IVP; Infused Over: 4 mins; Site: right antecubital; ko1 16:56 Follow up: Response: No adverse reaction; Pain is decreased ko1 Disposition: 11/09 14:32 Co-signature as Attending Physician, Xavier Hutchins MD I reviewed the patient's care rt provided by the Advanced Practice Provider and agree with the diagnosis and treatment plan. Disposition Summary: 11/08/22 16:55 Discharge Ordered Location: Home kb Condition: Stable kb Diagnosis - Calculus of ureter kb - Unspecified hydronephrosis kb Followup: kb - With: Emergency Department - When: As needed - Reason: Worsening of condition Followup: kb - With: Private Physician - When: 2 - 3 days - Reason: Recheck today's complaints, Continuance of care, Re-evaluation by your physician Discharge Instructions: - Discharge Summary Sheet kb - Kidney Stones, [id number] kb - Dietary Guidelines to Help Prevent Kidney Stones kb Forms: - Medication Reconciliation Form kb - Thank You Letter kb - Antibiotic Education kb - Prescription Opioid Use kb Signatures: Dispatcher [employer] EDMS Sidra Ashraf FNP-C FNP-Guerda Avalos RN RN ph Irene Farmer RN RN ko1 Xavier Hutchins MD MD rt
[2022-11-08 17:06] VITALS: TEMP 98.1
[2022-11-08 17:10] VITALS: BP 135/85; O2SAT 99
== END 2022-11-08 17:02 | disposition home or self-care (01) ==
LOC: ER 13:58
DX: N20.1 Calculus of ureter (principal); N13.30 Unspecified hydronephrosis
CPT/HCPCS: 96365; 85025; 80048; 36415; 76377; 74176; 96375; 99284; 96366; J3475; J7030; J2405; 81003; 81015